=== PATIENT | male | born 1975 | race Caucasian/White ===

== ENCOUNTER 2019-02-20 07:30 | Emergency (ER) | payer OTHER ==
[~2019-02-20] VITALS: Ht 167.6 cm; Wt 92.4 kg
[2019-02-20 08:17] LABS: BASOPHILS # (AUTO) 0.02 x10^3/uL (0-0.1); BASOPHILS % (AUTO) 0 % (0-1); EOSINOPHILS % (AUTO) 5 % (1-7); LYMPHOCYTES # (AUTO) 0.79 x10^3/uL (1-3.4); LYMPHOCYTES % (AUTO) 9 % (22-44); MD NO; MEAN CORPUSCULAR HEMOGLOBIN 31.3 pg (27.5-34.5); MEAN CORPUSCULAR HGB CONC 33.8 g/dL (33.2-36.2); MEAN CORPUSCULAR VOLUME 92.5 fL (81-97); MEAN PLATELET VOLUME 7.4 fL (7.4-10.4); MONOCYTES # (AUTO) 0.58 x10^3/uL (0.2-0.8); MONOCYTES % (AUTO) 6 % (2-9); NEUTROPHILS # (AUTO) 7.27 x10^3/uL (1.8-6.8); NEUTROPHILS % (AUTO) 80 % (42-75); PLATELET COUNT 218 x10^3/uL (130-400); RED BLOOD COUNT 4.62 x10^6/uL (4.38-5.82); RED CELL DISTRIBUTION WIDTH 12.9 % (9.4-14.8)
[2019-02-20 08:29] LABS: ALANINE AMINOTRANSFERASE 43 U/L (12-78); ALBUMIN 4.1 g/dL (3.4-5.0); ANION GAP 4 mmol/L (5-15); CALCIUM 8.6 mg/dL (8.5-10.1); CHLORIDE 107 mmol/L (98-107); CREATININE 1.24 mg/dL (0.7-1.3)
[2019-02-20 08:34] LABS: ALKALINE PHOSPHATASE 48 U/L (45-117); BILIRUBIN,TOTAL 0.6 mg/dL (0.2-1.0); TOTAL PROTEIN 7.7 g/dL (6.4-8.2); TROPONIN I < 0.015 ng/mL (0.000-0.045)
[2019-02-20 08:47] LABS: MICROSCOPIC NOT IND
[2019-02-20 09:00] LABS: CULTURE INDICATED? NO
--- NOTE | 2019-02-20 09:02 | NUR ---
Report received from JADYN Lambert. Care assumed at this time.
[2019-02-20 09:34] VITALS: BP 156/90
--- NOTE | 2019-02-20 09:35 | NUR ---
Plan of care updated with patient, states his pain is controlled at this time. Waiting for provider to discuss results with patient.
--- NOTE | 2019-02-20 10:13 | NUR ---
Discharge instructions discussed with patient including when to return to emergency department, patient verbalizes understanding, questions answered. Patient dresses independently, ambulates independently with steady gait in no acute distress.
== END 2019-02-20 10:02 ==
LOC: ED 07:51
DX: K85.00 Idiopathic acute pancreatitis without necrosis or infection (principal); E78.5 Hyperlipidemia, unspecified
CPT/HCPCS: 36415; 71045; 80053; 81003; 83690; 84484; 85025; 93005; 99284